=== PATIENT | female | born 1960 | race Caucasian/White ===

== ENCOUNTER 2016-08-19 11:13 | Outpatient (CLI) | payer OTHER | END 2016-08-19 11:14 | disposition home or self-care (01) | DX: L40.50 Arthropathic psoriasis, unspecified (principal); M19.90 Unspecified osteoarthritis, unspecified site ==

== ENCOUNTER 2018-05-18 09:33 | Outpatient (CLI) | payer OTHER ==
[2018-05-18 10:22] LABS: BASOPHILS % (AUTO) 0.6 %; EOSINOPHILS # (AUTO) 0.1 10^3/uL (0.0-0.7); EOSINOPHILS % (AUTO) 3.1 %; HGB - HEMOGLOBIN 13.6 g/dL (12.0-16.0); LYMPHOCYTES # (AUTO) 1.3 10^3/uL (1.5-3.5); LYMPHOCYTES % (AUTO) 29.9 %; MEAN CORPUSCULAR HEMOGLOBIN 31.3 pg (27.0-31.0); MEAN CORPUSCULAR HGB CONC 33.9 g/dL (32.0-36.0); MEAN CORPUSCULAR VOLUME 92.4 fL (81.0-99.0); MEAN PLATELET VOLUME 8.1 fL (7.9-10.8); MONOCYTES # (AUTO) 0.3 10^3/uL (0.0-1.0); MONOCYTES % (AUTO) 6.3 %; NEUTROPHILS # (AUTO) 2.5 10^3/uL (1.5-6.6); NEUTROPHILS % (AUTO) 60.1 %; PLT - PLATELET COUNT 210 10^3/uL (130-450); RED BLOOD COUNT 4.35 10^6/uL (4.20-5.40); WHITE BLOOD COUNT 4.2 x10^3/uL (4.8-10.8)
[2018-05-18 10:34] LABS: ALBUMIN 4.1 g/dL (3.2-5.5); ALBUMIN/GLOBULIN RATIO 1.5 (1.0-2.2); BILIRUBIN,TOTAL 0.8 mg/dL (0.2-1.0); CALCIUM 8.8 mg/dL (8.5-10.3); CREATININE 0.8 mg/dL (0.4-1.0); TOTAL PROTEIN 6.8 g/dL (6.7-8.2)
--- NOTE | 2018-05-18 16:10 | XRAY Report ---
Reason: FEMALE BREAST CANCER, LT BREAST, HTN Procedure Date: 05/18/2018 Accession Number: [id number] / [id number] Procedure: XR - Chest 2 View X-Ray CPT Code: 07429 FULL RESULT: EXAM: CHEST RADIOGRAPHY EXAM DATE: 05/18/2018 10:58 AM. CLINICAL HISTORY: Female breast cancer, left breast, hypertension. COMPARISON: None. TECHNIQUE: 2 views. FINDINGS: Lungs/Pleura: No focal opacities evident. No pleural effusion. No pneumothorax. Normal volumes. Mediastinum: Heart and mediastinal contours are unremarkable. Other: None. IMPRESSION: Normal 2-view chest radiography. RADIA
== END 2018-05-18 09:34 | disposition home or self-care (01) ==
LOC: LAB 09:33
PROVIDERS: ATTEND Internal Medicine Gastroenterology
DX: C50.912 Malignant neoplasm of unspecified site of left female breast (principal); L40.50 Arthropathic psoriasis, unspecified; I10 Essential (primary) hypertension
CPT/HCPCS: 36415; 71046; 80053; 85025; 85610; 93005

== ENCOUNTER 2018-05-23 07:53 | Day surgery (SDC) | payer OTHER ==
[2018-05-23] MEDS ORDERED: LACTATED RINGERS 1,000 ML IV ONE (08:06)
[2018-05-23] MEDS ORDERED: ceFAZolin 2 GM/50 ML 2 GM/50 ML BAG IV ONE (09:27)
--- NOTE | 2018-05-23 12:49 | Nuclear Medicine Report ---
Reason: LT BREAST CA Procedure Date: 05/23/2018 Accession Number: [id number] / [id number] Procedure: NM - Lymph Node Scintigraphy CPT Code: FULL RESULT: EXAM: SENTINEL LYMPH NODE RADIOTRACER INJECTION WITH IMAGING EXAM DATE: 05/23/2018 11:40 AM. CLINICAL HISTORY: 57-year-old female with breast cancer, undergoing a preoperative procedure. COMPARISON: 05/19/2018 mammogram. TECHNIQUE: The injection site of the left breast was cleansed according to protocol. Next, approximately 5 cc of 1% buffered lidocaine was injected followed by a total of 0.216 microcuries Tc-99m filtered sulfur colloid was injected into the same site. After appropriate delay, the patient was imaged according to the protocol. FINDINGS: Wheeler lymph node was identified and marked. The patient tolerated the procedure well. IMPRESSION: 1. Wheeler lymph node injection, without complication. 2. Left axillary uptake compatible with sentinel lymph node is identified. RADIA
--- NOTE | 2018-05-23 12:50 | ANESTHESIA ---
Pre-Anesthesia VS, & Labs - Diagnosis left breast cancer - Procedure left breast lumpectomy with sentinel node biopsy Vital Signs: Temp Pulse Resp BP Pulse Ox 36.8 C 80 18 118/78 100 05/23/18 08:06 05/23/18 08:06 05/23/18 08:06 05/23/18 08:06 05/23/18 08:06 Height 5 ft 6 in Weight (kg) 72 kg - NPO >8 hours - Is Patient ?: No Home Medications and Allergies Home Medications: Ambulatory Orders Amlodipine Besylate/Benazepril [Amlodipine-Benazepril 5-20 mg] 5 - 20 mg PO DAILY PM 05/20/18 Cetirizine [ZyrTEC] 10 mg PO DAILY 05/20/18 Folic Acid 1 mg PO DAILY 05/20/18 Methotrexate 17.5 mg PO AC 05/20/18 Amlodipine Besylate/Benazepril [Amlodipine-Benazepril 5-20 mg] 5 - 20 mg PO DAILY PM 05/20/18 Cetirizine [ZyrTEC] 10 mg PO DAILY 05/20/18 Folic Acid 1 mg PO DAILY 05/20/18 Methotrexate 17.5 mg PO AC 05/20/18 Allergies/Adverse Reactions: Allergies Allergy/AdvReac Type Severity Reaction Status Date / Time acetaminophen Allergy Rash Verified 05/20/18 13:33 Sulfa (Sulfonamide Allergy Rash Verified 05/20/18 13:33 Antibiotics) Anes History & Medical History - Anesthetic History Anesthesia Complications: reports: No previous complications - Medical History Cardiovascular: reports: Hypertension Pulmonary: reports: None Gastrointestinal: reports: None Urinary: reports: None Musculoskeletal: reports: Other - Surgical History Gynecologic: Tubal ligation, Other (breast cancer) Exam General: Alert Mouth Openin Fingerbreadth Neck Mobility: Normal Mallampati classification: II Thyromental Distance: less than 4 cm Respiratory: Lungs clear Cardiovascular: Regular rate Mental/Cognitive Status: Alert/Oriented X3 Plan Anesthesia Type: General Consent for Procedure(s) Verified and Reviewed: Yes Code Status: Attempt Resuscitation ASA classification: 2-Mild systemic disease Is this case an emergency?: No
[2018-05-23] MEDS ORDERED: BUPIVACAINE 0.5% PF 30 ML VIAL ONE (13:18)
[2018-05-23] MEDS ORDERED: METHYLENE BLUE 0.5% 50 MG/10 ML AMPULE ONE (14:01)
[2018-05-23] MEDS ORDERED: METHYLENE BLUE 100 MG/10 ML VIAL IR ONE (14:05)
[2018-05-23] MEDS ORDERED: BUPIVACAINE 0.5% PF 30 ML VIAL INFIL ONE (14:37)
[2018-05-23] MEDS ORDERED: PROPOFOL 200 MG/20 ML VIAL IVP ONE (15:30)
[2018-05-23] MEDS ORDERED: MIDAZOLAM 2 MG/2 ML VIAL IVP ONE (15:30)
[2018-05-23] MEDS ORDERED: LIDOCAINE-MPF 2% 5 ML VIAL IM ONE (15:30)
[2018-05-23] MEDS ORDERED: SUCCINYLCHOLINE 200 MG/10 ML VIAL IVP ONE (15:30)
[2018-05-23] MEDS ORDERED: DEXAMETHASONE 4 MG/ML VIAL IVP ONE (15:30)
[2018-05-23] MEDS ORDERED: ONDANSETRON 4 MG/2 ML VIAL IVP ONE (15:30)
[2018-05-23] MEDS ORDERED: fentaNYL 100 MCG/2 ML VIAL IVP ONE (15:30)
[2018-05-23] MEDS ORDERED: ONDANSETRON 4 MG/2 ML VIAL IVP PRN (16:22)
[2018-05-23] MEDS ORDERED: IBUPROFEN 600 MG TABLET PO PRN (16:22)
[2018-05-23] MEDS ORDERED: oxyCODONE 5 MG TABLET PO PRN (16:22)
--- NOTE | 2018-05-23 16:33 | Mammography Report ---
Reason: LT BREAST CA Procedure Date: 05/23/2018 Accession Number: [id number] / [id number] Procedure: RO - Wire Localization LT CPT Code: 59645 FULL RESULT: WIRE LOCALIZATION LEFT BREAST HISTORY: Left breast cancer COMPARISON: Mammogram 05/04/2018 TECHNIQUE: After discussion of potential risks and complications, informed consent is obtained from the patient. A craniocaudad superior to inferior approach is chosen. The patient is placed in the mammographic unit and the skin prepped in standard fashion. Approximately 6 cc of buffered lidocaine is used for local anesthetic. Then a 10 cm [place] wire is placed adjacent to the butterfly clip marking the previous stereotactic biopsy site. Confirmation of appropriate wire position is made with a lateral and CC view. The patient experienced a vasovagal episode at the end of the procedure. SPECIMEN RADIOGRAPH: The targeted butterfly clip and localization wire are both contained within the specimen. IMPRESSION: Successful wire localization left breast using mammographic assistance.
[2018-05-23 17:06] VITALS: BP 133/74
--- NOTE | 2018-05-24 09:12 | OPERATIVE REPORT ---
DATE OF SERVICE: 05/23/2018 Physician: Ghassan Ruiz MD PREOPERATIVE DIAGNOSIS: Invasive mammary carcinoma of the left breast. POSTOPERATIVE DIAGNOSIS: Invasive mammary carcinoma of the left breast. PROCEDURE PERFORMED 1. Left breast lumpectomy following needle localization. 2. Left axillary sentinel lymph node dissection. 3. Injection of methylene blue dye to facilitate procedure #2. ANESTHESIA: General endotracheal by Owen Severino CRNA. SURGEON: Ghassan Ruiz MD. ESTIMATED BLOOD LOSS: 25 mL. COMPLICATIONS: None. FINDINGS: A solitary, approximately 10 mm, slightly blue, hot lymph node was identified in level 1 of the left axilla with a timed count of 7800. Several addition adjacent smaller lymph nodes were also resected. They were seen to be neither hot nor blue. Following lumpectomy, specimen mammography confirmed the entirety of the localizing wire and the marker clip to be within the operative specimen. INDICATIONS: Patient is a 57-year-old woman who recently presented with a left breast palpable abnormality, which upon evaluation, including image-guided biopsy, revealed invasive mammary carcinoma. Interrogation of the axilla was negative, including an image-guided biopsy of a potential pathologic node, and additional lesions in the breast were biopsied and the two that were biopsied were thought to be benign. She was advised to undergo left breast lumpectomy following needle localization and left axillary sentinel lymph node biopsy as the next step in her breast-conservation therapy. TECHNIQUE: After informed consent and preoperative needle localization of the left breast lesion and preoperative nuclear medicine injection with lymphoscintigraphy and identification of a solitary axillary sentinel lymph node, patient was taken to the operating room where she was placed under general endotracheal anesthesia. Her left breast prepared with iodoform solution, following which approximately 1.5 mL of methylene blue were injected intradermally in the periareolar region in approximately 6 aliquots. The area was massaged for approximately 5 minutes. The left breast and axilla were then prepared with ChloraPrep solution and draped in the usual sterile fashion. Using the LaunchCyte counter probe, the sentinel lymph node was identified and an incision made over the suspected location transversely in the lower axilla. Hemostasis achieved with electrocautery and the precise LigaSure device. Several small lymph nodes were encountered and excised in the course of the dissection and localizing the sentinel node. Eventually, a blue lymphatic channel was identified and seen to terminate in a slightly blue, approximately 10 mm, hot lymph node. This was excised. A timed count was performed and the tissue sent for pathologic evaluation, identified as sentinel lymph node. The adjacent lymph nodes that were neither hot nor blue were sent separately labeled as lymph nodes. Interrogation of the axilla after removal of the above nodes revealed no residual activity, and no grossly abnormal lymph nodes were noted. After hemostasis was assured, wound closure was accomplished in layers using continuous 3-0 Vicryl to reapproximate the subcutaneous tissue, followed by 4-0 Monocryl subcuticular skin closure. Attention was then turned to performing the lumpectomy. A transverse incision approximately 4 cm in length was made immediately caudal to the localizing needle and wire exit site at approximately 12-o'clock position of the left breast. Hemostasis achieved with electrocautery. Skin flaps were raised circumferentially. The wire was transferred to the incision after the needle was removed, and a lumpectomy was performed using electrocautery with gross margins of 1-2 cm circumferentially down to and including pectoralis muscle fascia. The specimen with the localizing wire in situ was then marked for margins, using the localizing wire entry site as the superficial margin and the wire exit site as the deep margin. Medial, lateral, cranial and caudal margins were also marked separately. The tissue was then sent for specimen mammography with findings as noted above. The tissue was then sent for pathologic evaluation. After hemostasis was assured, the wound was irrigated with saline solution, following which wound closure was accomplished with a single layer of 4-0 Monocryl subcuticular skin closure, followed by Dermabond at both sites. Anesthesia was terminated, and patient transferred to the recovery room in satisfactory condition. Sponge and needle counts were correct x2, and no drains were used. TD: 05/23/2018 17:01 ZOË
== END 2018-05-23 07:54 | disposition home or self-care (01) ==
LOC: SDS 07:53
PROVIDERS: ATTEND Internal Medicine Gastroenterology
PROC: 07B60ZX Excision of Left Axillary Lymphatic, Open Approach, Diagnostic (ICD-10-PCS; 2018-05-23)
PROC: 0HBU0ZZ Excision of Left Breast, Open Approach (ICD-10-PCS; principal; 2018-05-23 12:45)
DX: C50.412 Malignant neoplasm of upper-outer quadrant of left female breast (principal); Z17.0 Estrogen receptor positive status [ER+]; I10 Essential (primary) hypertension; Z87.891 Personal history of nicotine dependence
CPT/HCPCS: 19281; 19301; 38500; 38900; 78195; J0330; J0690; J7120

== ENCOUNTER 2019-02-07 08:41 | Outpatient (CLI) | payer OTHER ==
--- NOTE | 2019-02-07 11:53 | Mammography Report ---
Reason: INVASIVE MAMMO CARCINOMA Procedure Date: 02/07/2019 Accession Number: [id number] / [id number] Procedure: RO - Diagnostic Dig Bilat CPT Code: FULL RESULT: EXAM: Diagnostic Dig Bilat DATE: 02/07/2019 9:23 AM CLINICAL HISTORY: Status post lumpectomy and radiation therapy left breast cancer. History of benign biopsies bilateral breasts. TECHNIQUE: (B) - Bilateral CC and MLO views were obtained. COMPARISON: 05/23/2018, 05/04/2018, 04/22/2018, 05/26/2017, 06/02/2016 and 05/29/2015 PARENCHYMAL PATTERN: (D) - The breasts demonstrate heterogeneously dense fibroglandular parenchyma bilaterally. FINDINGS: There are stable postbiopsy changes in the right breast with multiple surgical clips. There are new post therapy changes in the left breast with skin thickening and architectural distortion. Previously seen butterfly biopsy clip has been removed. Screw-type clip remains. There are no new suspicious masses or calcifications. IMPRESSION: Probably Benign. BI-RADS category 3. RECOMMENDATION: (6MOS) - Recommend 6 month follow-up exam. Left breast per protocol. BI-RADS CATEGORY: (3) - Probably Benign. STANDARD QUALIFYING STATEMENTS: 1. This examination was not reviewed with the aid of Computer-Aided Detection (CAD). 2. A negative or benign imaging report should not preclude biopsy if clinically suspicious findings are present. 3. Dense breasts may obscure an underlying neoplasm. 4. This examination was reviewed with the aid of 3D breast imaging (tomosynthesis).
== END 2019-02-07 08:42 | disposition home or self-care (01) ==
LOC: DI 08:41
PROVIDERS: ATTEND Internal Medicine Hematology & Oncology
DX: C50.912 Malignant neoplasm of unspecified site of left female breast (principal)
CPT/HCPCS: 77062; 77066

== ENCOUNTER 2019-09-05 10:38 | Outpatient (CLI) | payer OTHER ==
--- NOTE | 2019-09-05 12:08 | Mammography Report ---
Reason: INVASIVE MAMMORY CARCINOMA Procedure Date: 09/05/2019 Accession Number: [id number] / [id number] Procedure: RO - Diagnostic Dig LT CPT Code: Final Report FULL RESULT: EXAM: Diagnostic Dig LT DATE: 09/05/2019 11:33 AM CLINICAL HISTORY: Diagnostic examination. Personal history of breast cancer status post left breast lumpectomy in 2018. TECHNIQUE: (L) - Left CC and MLO views were obtained. Spot magnified CC, LM and spot magnified LM images are obtained. COMPARISON: 02/07/2019 through 05/29/2015. PARENCHYMAL PATTERN: (D) - The breast(s) demonstrate(s) heterogeneously dense fibroglandular parenchyma. FINDINGS: Redemonstration of probably benign postsurgical changes in the left breast. A screw type biopsy marker near the surgical site is again seen in unchanged relationship to nearby postsurgical soft tissues. There are no suspicious masses, calcifications, or areas of distortion. IMPRESSION: Probably Benign. BI-RADS category 3. RECOMMENDATION: (6MOS) - Recommend 6 month follow-up exam. At the time of annual right breast screening mammography. BI-RADS CATEGORY: (3) - Probably Benign. STANDARD QUALIFYING STATEMENTS: 1. This examination was not reviewed with the aid of Computer-Aided Detection (CAD). 2. A negative or benign imaging report should not preclude biopsy if clinically suspicious findings are present. 3. Dense breasts may obscure an underlying neoplasm. 4. This examination was reviewed with the aid of 3D breast imaging (tomosynthesis).
== END 2019-09-05 10:39 | disposition home or self-care (01) ==
LOC: DI 10:38
PROVIDERS: ATTEND Internal Medicine Hematology & Oncology
DX: C50.912 Malignant neoplasm of unspecified site of left female breast (principal)

== ENCOUNTER 2020-04-12 14:25 | Outpatient (CLI) | payer OTHER ==
--- NOTE | 2020-04-16 09:41 | Mammography Report ---
BILATERAL DIGITAL DIAGNOSTIC MAMMOGRAM 3D/2D: 04/12/2020 CLINICAL: Personal history of left breast cancer. Comparison is made to exams dated: 09/05/2019 mammogram, 02/07/2019 mammogram, 05/23/2018 mammogram - [facility], 05/04/2018 mammogram - [facility], 04/22/2018 mammogram, and 1 mammogram - [facility]. The tissue of both breasts is heterogeneously dense . This may lower the sensitivity of mammography. There are benign calcifications in both breasts. There also are benign post operative findings in dorothea th breasts. No significant masses, calcifications, or other findings are seen in either breast. There has been no significant interval change. IMPRESSION: BENIGN There is no mammographic evidence of malignancy. A 1 year screening mammogram is recommended. This exam was interpreted at Station ID: [id number]. NOTE: For mammograms, a report in lay terms will be sent to the patient. Approximately 15% of breast malignancies will not be visualized mammographically. In the management of a palpable breast mass, a negative mammogram must not discourage biopsy of a clinically suspicious lesion. Electronically Signed By: Gildardo Campbell M.D. ddp/penrad:04/12/2020 15:52:40 ACR BI-RADS Category 2: Benign Finding(s) 3342F PARENCHYMAL PATTERN: (D) - The breast(s) demonstrate(s) heterogeneously dense fibroglandular sarah mares. BI-RADS CATEGORY: (2) - 2 RECOMMENDATION: (ANNUAL) - Recommend routine annual screening mammography. [id number] 1 year screening LATERALITY: (B)
== END 2020-04-12 14:26 | disposition home or self-care (01) ==
LOC: DI 14:25
PROVIDERS: ATTEND Internal Medicine Hematology & Oncology
DX: C50.912 Malignant neoplasm of unspecified site of left female breast (principal); R92.0 Mammographic microcalcification found on diagnostic imaging of breast
CPT/HCPCS: 77066

== ENCOUNTER 2020-04-18 10:18 | Outpatient (CLI) | payer OTHER | END 2020-04-18 10:19 | disposition home or self-care (01) | LOC: DI 10:18 | PROVIDERS: ATTEND Internal Medicine | DX: I48.91 Unspecified atrial fibrillation (principal); I34.0 Nonrheumatic mitral (valve) insufficiency | CPT/HCPCS: 93306 ==

== ENCOUNTER 2020-05-14 09:18 | Emergency (ER) | payer OTHER ==
--- NOTE | 2020-05-14 09:58 | XRAY Report ---
PROCEDURE: Chest 1 View X-Ray INDICATIONS: Chest Pain TECHNIQUE: One view of the chest was acquired. COMPARISON: 05/18/2018 FINDINGS: Surgical changes and devices: None. Lungs and pleura: No pleural effusions or pneumothorax. Lungs are clear. Mediastinum: Mediastinal contours appear normal. Heart size is normal. Bones and chest wall: No suspicious bony lesions. Right breast surgical clips. Overlying soft tissu es appear otherwise unremarkable. IMPRESSION: No acute process. Reviewed by: Rober Ross MD on 05/14/2020 9:57 AM PDT Approved by: Rober Ross MD on 05/14/2020 9:57 AM PDT Station ID: [id number]
--- NOTE | 2020-05-14 10:00 | ED Physician Documentation ---
PD HPI CHEST PAIN - Stated complaint Stated Complaint: CHEST HEAVINESS/DIZZY - Chief complaint Chief Complaint: Cardiac - History obtained from History obtained from: Patient - History of Present Illness Timing - onset: Enter time (0600), Today Timing - onset during: Rest Timing - duration: Hours (3) Timing - details: Gradual onset, Now resolved Quality: Pressure Location: Substernal, Left chest Radiation: Neck Improved by: Rest Worsened by: Exertion Associated symptoms: Shortness of air, Feeling faint / dizzy. No: Diaphoresis, Nausea, Vomiting Similar symptoms before: Diagnosis (afib with RVR) Recently seen: Clinic - Additional information Additional information: 59-year-old female on anastrozole with a history of breast cancer has developed atrial fibrillation about 6 weeks ago and she has had an echo in the evaluation of this and she has been placed on to metoprolol and Eliquis. She has had an episode last week of something similar to what she has had this morning which was apparently worse and resolved itself spontaneously. She has had an episode this morning where she got out of bed felt a heaviness in her chest felt palpitations she clocked her heart rate at 150 bpm and this was later in the 80s. She has had improvement in her symptoms and is currently without symptoms.She takes her metoprolol 50mg twice per day and recently increased her dose. She takes this at 730am and took it today as well. Review of Systems Constitutional: denies: Fever Eyes: denies: Decreased vision Ears: denies: Ear pain Nose: denies: Rhinorrhea / runny nose, Congestion Throat: denies: Sore throat Cardiac: reports: Chest pain / pressure, Palpitations. denies: Pedal edema, Calf pain Respiratory: reports: Dyspnea. 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 : None HEENT: None Psych: None Musculoskeletal: Other Derm: Psoriasis - Past Surgical History Past Surgical History: Yes /BEAD FILLER: Tubal ligation, Other - Present Medications Home Medications: Ambulatory Orders Medication Instructions Recorded Confirmed Cetirizine [ZyrTEC] 10 mg PO DAILY 05/20/18 04/16/20 Anastrozole 1 mg PO DAILY 08/01/19 04/16/20 Metoprolol Succinate [[place] 1 tab PO DAILY 04/16/20 04/16/20 Sprinkle] - Allergies Allergies/Adverse Reactions: Allergies Allergy/AdvReac Type Severity Reaction Status Date / Time acetaminophen Allergy Rash Verified 05/14/20 09:29 Sulfa (Sulfonamide Allergy Rash Verified 05/14/20 09:29 Antibiotics) - Social History Does the pt smoke?: No Smoking Status: Never smoker Does the pt drink ETOH?: No Does the pt have substance abuse?: No - Immunizations Immunizations are current?: No Immunizations: TDAP >10years/unknown PD ED PE NORMAL - Vitals Vital signs reviewed: Yes (normal ) - General General: Alert and oriented X 3, No acute distress, Well developed/nourished - HEENT HEENT: Atraumatic, PERRL, EOMI - Neck Neck: Supple, no meningeal sign, No bony TTP - Cardiac Cardiac: No murmur, Other - Respiratory Respiratory: No respiratory distress, Clear bilaterally - Abdomen Abdomen: Soft, Non tender - Back Back: No CVA TTP, No spinal TTP - Derm Derm: Normal color, Warm and dry, No rash - Extremities Extremities: No deformity, No edema - Neuro Neuro: Alert and oriented X 3, 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 (afib noted on echo done 04-18-2020)) Computer interpretation: Agree with computer - Labs Labs: Laboratory Tests 05/14/20 05/14/20 05/14/20 10:07 10:07 10:07 WBC 6.4 RBC 5.09 Hgb 15.3 Hct 45.1 MCV 88.6 MCH 30.1 MCHC 33.9 RDW 12.0 Plt Count 219 MPV 9.7 Neut # (Auto) 4.3 Lymph # (Auto) 1.4 L Cobb # (Auto) 0.6 Eos # (Auto) 0.2 Baso # (Auto) 0.0 Absolute Nucleated RBC 0.00 Nucleated RBC % 0.0 Sodium 138 Potassium 4.0 Chloride 101 Carbon Dioxide 28 Anion Gap 9.0 BUN 15 Creatinine 0.8 Estimated GFR (MDRD) 73 L Glucose 119 H Calcium 9.3 Total Bilirubin 0.8 AST 17 ALT 16 Alkaline Phosphatase 97 Troponin I High Sens 4.6 Total Protein 6.9 Albumin 3.8 Globulin 3.1 Albumin/Globulin Ratio 1.2 Lipase 35 Urine Color Urine Clarity Urine pH Ur Specific [place] Urine Protein Urine Glucose (UA) Urine Ketones Urine Occult Blood Urine Nitrite Urine Bilirubin Urine Urobilinogen Ur Leukocyte Esterase Ur Microscopic Review Urine Culture Comments 05/14/20 13:05 WBC RBC Hgb Hct MCV MCH MCHC RDW Plt Count MPV Neut # (Auto) Lymph # (Auto) Cobb # (Auto) Eos # (Auto) Baso # (Auto) Absolute Nucleated RBC Nucleated RBC % Sodium Potassium Chloride Carbon Dioxide Anion Gap BUN Creatinine Estimated GFR (MDRD) Glucose Calcium Total Bilirubin AST ALT Alkaline Phosphatase Troponin I High Sens Total Protein Albumin Globulin Albumin/Globulin Ratio Lipase Urine Color YELLOW Urine Clarity CLEAR Urine pH 6.5 Ur Specific [place] <=1.005 Urine Protein NEGATIVE Urine Glucose (UA) NEGATIVE Urine Ketones NEGATIVE Urine Occult Blood NEGATIVE Urine Nitrite NEGATIVE Urine Bilirubin NEGATIVE Urine Urobilinogen 0.2 (NORMAL) Ur Leukocyte Esterase NEGATIVE Ur Microscopic Review NOT INDICATED Urine Culture Comments NOT INDICATED - Rads (name of study) chest Radiology: Prelim report reviewed, EMP read indepedently (Impression: No acute process.), See rad report Procedures - IVC sono (time) 1250 Bedside IVC sono: IVC measures (cm) (1.48), IVC collapsed c insp (cm) (0.87), Euvolemia PD MEDICAL DECISION MAKING - ED course Complexity details: reviewed old records, reviewed results, re-evaluated patient, considered differential, d/w patient ED course: 59 y/o female with new onset afib (6 weeks ago) has rate control and is asymptomatic now. She describes an event consistent with afib with RVR. I examined the patient I found nothing specific about the examination to indicate why she would have an episode today and her laboratory values are also without specific indication. I checked her inferior vena cava and found her to be euvoluemic and she does not have urinary tract infection.I reviewed with the patient her medication use and timing of her medication and it appears she takes her metoprolol around 5:00 at night and again at 7:30 in the morning. And I have encouraged her to make this closer to a 12-hour split with medications. She may need to increase her dose and she seems to be getting along with the medication well. I have asked her to follow-up with her primary for an interval history with how this is working. Departure - Departure Disposition: 01 Home, Self Care Clinical Impression: Atrial fibrillation with RVR Condition: Stable Instructions: ED Afib Follow-Up: DANNY HALEY MD [Primary Care Provider] - Comments: Today we did not find any abnormalities to your laboratory work-up or physical examination. It does appear you have had an episode of atrial fibrillation with rapid ventricular response. 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 My recommendation is to take the metoprolol later at night and follow-up with your primary in the next week to let them know how this works. You may need to increase her dose of metoprolol.
[2020-05-14 10:14] LABS: BASOPHILS % (AUTO) 0.5 %; EOSINOPHILS # (AUTO) 0.2 10^3/uL (0.0-0.7); EOSINOPHILS % (AUTO) 3.3 %; HGB - HEMOGLOBIN 15.3 g/dL (12.0-16.0); LYMPHOCYTES # (AUTO) 1.4 10^3/uL (1.5-3.5); LYMPHOCYTES % (AUTO) 21.3 %; MEAN CORPUSCULAR HEMOGLOBIN 30.1 pg (27.0-31.0); MEAN CORPUSCULAR HGB CONC 33.9 g/dL (32.0-36.0); MEAN CORPUSCULAR VOLUME 88.6 fL (81.0-99.0); MEAN PLATELET VOLUME 9.7 fL (7.9-10.8); MONOCYTES # (AUTO) 0.6 10^3/uL (0.0-1.0); MONOCYTES % (AUTO) 8.7 %; NEUTROPHILS # (AUTO) 4.3 10^3/uL (1.5-6.6); NEUTROPHILS % (AUTO) 65.9 %; PLT - PLATELET COUNT 219 10^3/uL (130-450); RED BLOOD COUNT 5.09 10^6/uL (4.20-5.40); WHITE BLOOD COUNT 6.4 x10^3/uL (4.8-10.8)
[2020-05-14 10:27] LABS: ALBUMIN 3.8 g/dL (3.2-5.5); ALBUMIN/GLOBULIN RATIO 1.2 (1.0-2.2); BILIRUBIN,TOTAL 0.8 mg/dL (0.2-1.0); CALCIUM 9.3 mg/dL (8.5-10.3); CREATININE 0.8 mg/dL (0.4-1.0); TOTAL PROTEIN 6.9 g/dL (6.7-8.2)
[2020-05-14 13:21] LABS: BILIRUBIN,URINE NEGATIVE (NEGATIVE); GLUCOSE, URINE (UA) NEGATIVE (NEGATIVE); KETONES,URINE (UA) NEGATIVE (NEGATIVE); LEUKOCYTE ESTERASE, URINE NEGATIVE (NEGATIVE); NITRITE,URINE NEGATIVE (NEGATIVE); OCCULT BLOOD,URINE NEGATIVE (NEGATIVE); PH,URINE 6.5 PH (5.0-7.5); PROTEIN,URINE NEGATIVE (NEGATIVE); UROBILINOGEN,URINE 0.2 (NORMAL) E.U./dL (NORMAL)
[2020-05-14 13:24] LABS: CLARITY,URINE CLEAR (CLEAR)
[2020-05-14 13:45] VITALS: BP 118/84
== END 2020-05-14 13:49 | disposition home or self-care (01) ==
LOC: ED 09:18
DX: I48.91 Unspecified atrial fibrillation (principal); Z79.01 Long term (current) use of anticoagulants; I10 Essential (primary) hypertension; Z85.3 Personal history of malignant neoplasm of breast
CPT/HCPCS: 36415; 71045; 80053; 81001; 81003; 83690; 84484; 85025; 87086; 93005; 99284

== ENCOUNTER 2021-04-09 10:54 | Outpatient (CLI) | payer OTHER ==
--- NOTE | 2021-04-10 13:19 | Mammography Report ---
BILATERAL DIGITAL SCREENING MAMMOGRAM 3D/2D WITH EXAGGERATED CC: 04/09/2021 CLINICAL: Routine screening. Personal history of left breast cancer. Comparison is made to exams dated: 04/12/2020 mammogram, 09/05/2019 mammogram, 02/07/2019 mammogram - [facility], and 04/22/2018 mammogram - [facility]. The tissue of both b reasts is heterogeneously dense. This may lower the sensitivity of mammography. There are benign calcifications in both breasts. There also are benign post operative findings in dorothea th breasts. No significant masses, calcifications, or other findings are seen in either breast. There has been no significant interval change. IMPRESSION: BENIGN There is no mammographic evidence of malignancy. A 1 year screening mammogram is recommended. This exam was interpreted at Station ID: [id number]. NOTE: For mammograms, a report in lay terms will be sent to the patient. Approximately 15% of breast malignancies will not be visualized mammographically. In the management of a palpable breast mass, a negative mammogram must not discourage biopsy of a clinically suspicious lesion. Electronically Signed By: Stephanei carnes/cony:04/09/2021 15:09:01 ACR BI-RADS Category 2: Benign Finding(s) 3342F PARENCHYMAL PATTERN: (D) - The breast(s) demonstrate(s) heterogeneously dense fibroglandular sarah mares. BI-RADS CATEGORY: (2) - 2 RECOMMENDATION: (ANNUAL) - Recommend routine annual screening mammography. [id number] 1 year screening LATERALITY: (B)
== END 2021-04-09 10:55 | disposition home or self-care (01) ==
LOC: DI.S 10:54
DX: Z12.31 Encounter for screening mammogram for malignant neoplasm of breast (principal); Z85.3 Personal history of malignant neoplasm of breast

== ENCOUNTER 2022-04-09 08:54 | Outpatient (CLI) | payer OTHER ==
--- NOTE | 2022-04-10 10:14 | Mammography Report ---
BILATERAL DIGITAL SCREENING MAMMOGRAM 3D/2D WITH EXAGGERATED CC: 04/09/2022 CLINICAL: Routine screening. Personal history of left breast cancer. Comparison is made to exams dated: 04/09/2021 mammogram, 09/05/2019 mammogram, 04/12/2020 mammogram, 2018 mammogram, and 05/23/2018 mammogram - [facility]. Both breasts are heterogeneously dense, which may obscure small masses (category c / 51-75% glandula r tissue). There are benign calcifications in both breasts. There also are benign post operative findings in dorothea th breasts. No significant masses, calcifications, or other findings are seen in either breast. There has been no significant interval change. IMPRESSION: BENIGN There is no mammographic evidence of malignancy. A 1 year screening mammogram is recommended. This exam was interpreted at Station ID: [id number]. NOTE: For mammograms, a report in lay terms will be sent to the patient. Approximately 15% of breast malignancies will not be visualized mammographically. In the management of a palpable breast mass, a negative mammogram must not discourage biopsy of a clinically suspicious lesion. Electronically Signed By: Kyrie wood/penrad:04/09/2022 14:07:19 ACR BI-RADS Category 2: Benign Finding(s) 3342F PARENCHYMAL PATTERN: (D) - The breast(s) demonstrate(s) heterogeneously dense fibroglandular sarah mares. BI-RADS CATEGORY: (2) - 2 RECOMMENDATION: (ANNUAL) - Recommend routine annual screening mammography. [id number] 1 year screening LATERALITY: (B)
== END 2022-04-09 08:55 | disposition home or self-care (01) ==
LOC: DI.S 08:54
DX: Z12.31 Encounter for screening mammogram for malignant neoplasm of breast (principal); Z85.3 Personal history of malignant neoplasm of breast